=== PATIENT | female | born 1995 | race Caucasian/White ===

== ENCOUNTER 2017-07-25 13:42 | Emergency (ER) | payer OTHER ==
[2017-07-25 13:50] VITALS: BP 125/60; PULSE 65; TEMP 97.9; BMI 23.1
[2017-07-25] MEDS ORDERED: IBUPROFEN 400 MG TABLET (FP) PO ONE ×2 (15:14→15:21)
--- NOTE | 2017-07-25 15:14 | PDOC ---
History of Present Illness - General Chief Complaint: Cold Symptoms Stated Complaint: HEADACHE Time Seen by Provider: 07/25/17 15:03 Past History - Past Medical History Allergies/Adverse Reactions: Allergies Allergy/AdvReac Type Severity Reaction Status Date / Time No Known Allergies Allergy Verified 07/25/17 13:46 Home Medications: Ambulatory Orders Fluticasone Prop 0.05% Nasal [Flonase -] 1 - 2 spray NS BID #1 spray.pump Ibuprofen 800 mg PO TID #30 tablet 07/25/17 COPD: No Thyroid Disease: Yes (THYROID) - Suicide/Smoking/Psychosocial Hx Smoking History: Never smoked Have you smoked in the past 12 months: No Information on smoking cessation initiated: No Hx Alcohol Use: No Drug/Substance Use Hx: No Substance Use Type: None *Physical Exam - Vital Signs Last Vital Signs Temp Pulse Resp BP Pulse Ox 97.9 F 65 18 125/60 100 07/25/17 13:47 07/25/17 13:47 07/25/17 13:47 07/25/17 13:47 07/25/17 13:47 *DC/Admit/Observation/Transfer Diagnosis at time of Disposition: Upper respiratory infection Qualifiers: URI type: unspecified viral URI Qualified Code(s): J06.9 - Acute upper respiratory infection, unspecified - Discharge Dispostion Disposition: HOME Condition at time of disposition: Stable Admit: No - Prescriptions Prescriptions: Fluticasone Prop 0.05% Nasal [Flonase -] 1 - 2 spray NS BID #1 spray.pump Ibuprofen 800 mg PO TID #30 tablet - Referrals Referrals: Lynne Ryder MD [Primary Care Provider] - - Patient Instructions Printed Discharge Instructions: DI for Viral Upper Respiratory Infection -- Adult Additional Instructions: You have a cold. Please take ibuprofen 800 mg as needed for headache, sore throat, earache. You may use the Flonase twice a day to help with your congestion. This will also help your ear pain. Please drink plenty of fluids. Follow up with your primary care doctor this week. Return to the emergency department if you have worsening fevers, difficulty breathing, lightheadedness, worsening headache, or have any changes in your symptoms. Tienes un resfriado. [place] ibuprofeno 800 mg segn sea necesario para el dolor de matt, dolor de garganta y dolor de odos. Puede usar Flonase dos veces al d a para ayudar con recio congestin. [place] tambin ayudar a recio dolor de odo. Por favor soto muchos lquidos. [place] un seguimiento con recio mdico de atencin primaria esta semana. Regrese al departamento de emergencias si tiene fiebre, dificultad para respirar , aturdimiento, empeoramiento del dolor de matt o cambios en roberto sntomas. Print Language: MONEGASQUE - Post Discharge Activity Forms/Work/School Notes: Back to Work
== END 2017-07-25 15:43 | disposition home or self-care (01) ==
LOC: JERFT 13:42
DX: J06.9 Acute upper respiratory infection, unspecified (principal); B97.89 Other viral agents as the cause of diseases classified elsewhere
CPT/HCPCS: 99281-25

== ENCOUNTER 2020-08-19 21:54 | Emergency (ER) | payer OTHER ==
[2020-08-19 22:05] VITALS: BP 122/68; PULSE 73; TEMP 98.2; BMI 24.3
== END 2020-08-19 23:21 | disposition left against medical advice (07) ==
LOC: JER 21:54
DX: R10.9 Unspecified abdominal pain (principal); R11.2 Nausea with vomiting, unspecified; R19.7 Diarrhea, unspecified
CPT/HCPCS: 99284-25

== ENCOUNTER 2021-06-03 12:46 | Emergency (ER) | payer OTHER ==
[2021-06-03 12:55] VITALS: BP 115/76; PULSE 71; TEMP 98.1; BMI 24.1
[2021-06-03] MEDS ORDERED: IBUPROFEN 400 MG TABLET (FP) PO ONE ×2 (13:20→13:23)
== END 2021-06-03 14:29 | disposition home or self-care (01) ==
LOC: JERFT 12:46
DX: M54.50 Low back pain, unspecified (principal); S30.0XXA Contusion of lower back and pelvis, initial encounter; W19.XXXA Unspecified fall, initial encounter; Y92.9 Unspecified place or not applicable
CPT/HCPCS: 72100-TC-FY; 99284-25

== ENCOUNTER 2023-01-02 20:39 | Emergency (ER) | payer OTHER ==
[2023-01-02 20:47] VITALS: BP 110/65; PULSE 72; RESP 19; TEMP 98.2; BMI 23.8
[2023-01-02] MEDS ORDERED: DEXAMETHASONE SOD PHOSPHATE 10 MG/1 ML VIAL PO ONE (22:04)
[2023-01-02] MEDS ORDERED: ACETAMINOPHEN 500 MG TABLET (FP) PO ONE (22:04)
[2023-01-02] MEDS ORDERED: DEXAMETHASONE 4 MG TABLET (FP) ONE (22:08)
[2023-01-02] MEDS ORDERED: ACETAMINOPHEN 500 MG TABLET (FP) ONE ×2 (22:08→22:14)
[2023-01-02] MEDS ORDERED: DEXAMETHASONE SOD PHOSPHATE 10 MG/1 ML VIAL ONE (22:15)
[2023-01-02 22:38] LABS: THROAT:GRP A STREP NOT DETECTED (NOTDETECTED)
== END 2023-01-02 23:09 | disposition home or self-care (01) ==
LOC: JERFT 20:39
DX: J02.9 Acute pharyngitis, unspecified (principal); R13.10 Dysphagia, unspecified; R49.1 Aphonia; Z20.822 Contact with and (suspected) exposure to COVID-19
CPT/HCPCS: 0241U-QW; 87651; 99283-25; J1100

== ENCOUNTER 2023-06-02 19:03 | Emergency (ER) | payer OTHER ==
[2023-06-02 19:14] VITALS: BP 150/93; PULSE 91; RESP 18; TEMP 97.5; BMI 24.8
[2023-06-02] MEDS ORDERED: FAMOTIDINE 20 MG/50 ML IVPB 20 MG/50 ML MG IVPB ONE ×2 (19:59→20:34)
[2023-06-02] MEDS ORDERED: ACETAMINOPHEN 1000 MG/100 ML BAG IVPB ONE (19:59)
[2023-06-02] MEDS ORDERED: MAG HYDROX/AL HYDROX/SIMETH 30 ML UNIT-DOSE CUP PO ONE (20:00)
[2023-06-02] MEDS ORDERED: LACTATED RINGERS SOLUTION 1,000 ML/1,000 ML INFUS.BAG IV SCH (20:00)
[2023-06-02] MEDS ORDERED: MAG HYDROX/AL HYDROX/SIMETH 30 ML UNIT-DOSE CUP ONE (20:34)
[2023-06-02] MEDS ORDERED: ACETAMINOPHEN INJECTION 100 ML IVPB ONE (20:34)
[2023-06-02 20:49] LABS: BASO % 0.4 % (0-2.0); EOS % 0.1 % (0-4.5); HEMATOCRIT 36.2 % (32.4-45.2); HEMOGLOBIN 12.2 GM/dL (10.7-15.3); LYMPH % 21.3 % (8-40); MCH 28.5 pg (25.7-33.7); MCHC 33.6 g/dl (32.0-36.0); MEAN CELL VOLUME 84.8 fl (80-96); MEAN PLT VOLUME 8.2 fl (7.5-11.1); MONO % 6.3 % (3.8-10.2); NEUT % 71.9 % (42.8-82.8); PLATELET COUNT 204 10^3/uL (134-434); RBC 4.27 M/mm3 (3.60-5.2); RDW 14.5 % (11.6-15.6)
[2023-06-02 21:36] LABS: ALBUMIN 3.9 g/dl (3.4-5.0); BLOOD UREA NITROGEN 6.9 mg/dL (7-18); CALCIUM 9.5 mg/dL (8.5-10.1); CREATININE 0.5 mg/dL (0.55-1.3); TOT PROT 7.4 g/dl (6.4-8.2)
[2023-06-02] MEDS ORDERED: DICYCLOMINE HCL 20 MG TABLET PO ONE (22:32)
[2023-06-02] MEDS ORDERED: DICYCLOMINE HCL 10 MG CAPSULE ONE (23:32)
== END 2023-06-02 23:39 | disposition home or self-care (01) ==
LOC: JER 19:03
PROC: 3E033GC Introduction of Other Therapeutic Substance into Peripheral Vein, Percutaneous Approach (ICD-10-PCS; principal; 2023-06-02)
PROC: 3E033NZ Introduction of Analgesics, Hypnotics, Sedatives into Peripheral Vein, Percutaneous Approach (ICD-10-PCS; 2023-06-02)
PROC: 3E033GC Introduction of Other Therapeutic Substance into Peripheral Vein, Percutaneous Approach (ICD-10-PCS; 2023-06-02)
DX: R10.13 Epigastric pain (principal); R11.0 Nausea; R42 Dizziness and giddiness; Z20.822 Contact with and (suspected) exposure to COVID-19
CPT/HCPCS: 0241U-QW; 36415; 76705-TC; 80053; 83690; 84703; 85025; 99284-25

== ENCOUNTER 2024-02-18 15:21 | Emergency (ER) | payer OTHER ==
[2024-02-18 15:27] VITALS: BP 115/72; PULSE 75; RESP 18; TEMP 98.4; BMI 25.6
== END 2024-02-18 16:29 | disposition home or self-care (01) ==
LOC: JERFT 15:21
DX: H66.93 Otitis media, unspecified, bilateral (principal); J02.9 Acute pharyngitis, unspecified; H92.03 Otalgia, bilateral; R53.81 Other malaise; R50.9 Fever, unspecified; L53.9 Erythematous condition, unspecified
CPT/HCPCS: 99283-25

== ENCOUNTER 2024-03-02 17:31 | Emergency (ER) | payer OTHER ==
[2024-03-02 17:36] VITALS: BP 113/70; PULSE 77; RESP 20; TEMP 97.9; BMI 25.6
[2024-03-02] MEDS ORDERED: IBUPROFEN 400 MG TABLET (FP) PO ONE (18:49)
[2024-03-02] MEDS: IBUPROFEN 400 MG TABLET (FP) PO ONE (18:54)
[2024-03-02] MEDS: MAG HYDROX/ALH/SMC/DPHA/LIDO 240 ML MOUTHWASH MM ONE (19:59)
[2024-03-03] MEDS ORDERED: MAG HYDROX/ALH/SMC/DPHA/LIDO 240 ML MOUTHWASH MM ONE (18:44)
== END 2024-03-02 20:10 | disposition home or self-care (01) ==
LOC: JERFT 17:31
DX: J02.9 Acute pharyngitis, unspecified (principal); H92.03 Otalgia, bilateral; R09.82 Postnasal drip; L29.9 Pruritus, unspecified
CPT/HCPCS: 87651; 99283-25